=== PATIENT | male | born 1995 | race Two or more races ===

== ENCOUNTER 2018-05-12 21:59 | Emergency (ER) | payer OTHER ==
[~2018-05-12] VITALS: Ht 172.7 cm; Wt 109.8 kg
[2018-05-12 22:14] VITALS: BP 122/79
[2018-05-12] MEDS ORDERED: HYDROCODON-ACE1 EA15 ORAL (22:30)
[2018-05-12] MEDS ORDERED: IBUPROFEN600 MG ORAL (22:30)
[2018-05-12] MEDS ORDERED: PREDNISONE20 MG ORAL (22:30)
[2018-05-12] MEDS ORDERED: Norco 5mg/325mg tab ORAL ONE (22:30)
--- NOTE | 2018-05-12 22:31 | Emergency Room Report ---
History of Present Illness General Chief Complaint: Back Pain-No Injury Source: Patient Present Illness HPI Is a 22-year-old male with no past medical history. He presents with chief complaint of back pain. Onset was this afternoon. He was walking when he felt pain to his back. Doubt pain going down his right leg. Worse with certain movement. Better with rest. No incontinence of bowel or urine. No trauma. No fever or chills. Never had this problem before. Pain is 8 out of 10. Allergies: Coded Allergies: No Known Allergies (Unverified , 05/12/18) Patient History Past Medical History: none, see triage record, old chart reviewed Past Surgical History: none Pertinent Family History: none Social History: Denies: smoking Immunizations: other Reviewed Nursing Documentation: PMH: Agreed; PSxH: Agreed Nursing Documentation-PM Past Medical History: No Stated History Review of Systems Eye: Denies: eye pain, blurred vision ENT: Denies: ear pain, nose congestion, throat swelling Respiratory: Denies: cough, shortness of breath Cardiovascular: Denies: chest pain, palpitations Gastrointestinal: Denies: abdominal pain, diarrhea, nausea, vomiting Musculoskeletal: Reports: back pain; Denies: joint pain Skin: Denies: rash Neurological: Denies: headache, numbness Endocrine: Denies: increased thirst, increased urine Hematologic/Lymphatic: Denies: easy bruising All Other Systems: negative except mentioned in HPI Physical Exam Vital Signs Date Time Temp Pulse Resp B/P (MAP) Pulse Ox O2 Delivery O2 Flow Rate FiO2 05/12/18 22:05 98.1 100 16 122/79 98 05/12/18 22:14 Room Air vitals normal Sp02 EP Interpretation: reviewed, normal General Appearance: well appearing, no apparent distress, alert Head: normocephalic, atraumatic Eyes: bilateral eye PERRL, bilateral eye EOMI ENT: hearing grossly normal, normal pharynx Neck: full range of motion, supple, no meningismus Respiratory: chest non-tender, lungs clear, normal breath sounds Cardiovascular #1: regular rate, rhythm, no murmur Gastrointestinal: normal bowel sounds, non tender, no mass, no organomegaly, no bruit, non-distended Musculoskeletal: back normal - tenderness to the right lower lower lumbar paraspinous muscle, gait/station normal, normal range of motion Psychiatric: mood/affect normal Skin: warm/dry Medical Decision Making Diagnostic Impression: Primary Impression: Back pain Qualified Codes: M54.41 - Lumbago with sciatica, right side ER Course Patient with lower back pain with sciatica. No evidence of cauda equina syndrome, spinal epidural abscess or neoplastic process. We'll discharge home. Last Vital Signs Date Time Temp Pulse Resp B/P (MAP) Pulse Ox O2 Delivery O2 Flow Rate FiO2 05/12/18 22:14 98.1 100 16 122/79 98 Room Air Status: improved Disposition: HOME, SELF-CARE Condition: Stable Scripts Prednisone* (PREDNISONE*) 20 Mg Tablet 40 MG ORAL DAILY, #10 TAB Prov: David Jefferson MD 05/12/18 Ibuprofen* (MOTRIN*) 600 Mg Tablet 600 MG ORAL THREE TIMES A DAY, #30 TAB 0 Refills Prov: David Jefferson MD 05/12/18 Hydrocodone/Acetaminophen 5-325* (HYDROCODONE/ACETAMINOPHEN 5-325*) 1 Each Tablet 1 TAB ORAL Q6H PRN for For Pain, #10 TAB 0 Refills Prov: David Jefferson MD 05/12/18 Patient Instructions: Sciatica Additional Instructions: Follow-up your doctor in 7 days. No heavy lifting. If symptoms continue, you may need an MRI. David Jefferson MD May 12, 2018 22:31
[2018-05-12 22:45] VITALS: BP 126/78
== END 2018-05-12 22:45 | disposition home or self-care (01) ==
LOC: EMR 22:28
DX: M54.41 Lumbago with sciatica, right side (principal)
CPT/HCPCS: 99283